=== PATIENT | male | born 1955 | race Caucasian/White ===

== ENCOUNTER 2021-12-10 17:31 | Observation (INO) | payer OTHER ==
[2021-12-10] MEDS ORDERED: Ondansetron PF 4 MG/2 ML Vial IVP PRN (18:52)
[2021-12-10] MEDS ORDERED: Ondansetron ODT 4 MG TAB PO PRN (18:52)
[2021-12-10 19:31] LABS: Hemoglobin A1c 5.2 % (4.0-6.0)
[2021-12-10 20:25] VITALS: BMI 32.3
[2021-12-10] MEDS: Acetaminophen 325 MG TAB PO PRN (20:32)
[2021-12-10] MEDS ORDERED: Atorvastatin Calcium 40 MG TAB PO SCH (21:00)
[2021-12-11 05:27] LABS: #Eosinphils 0.3 thou/uL (0.0-0.7); #Lymphocytes 2.6 thou/uL (1.20-3.40); #Monocytes 0.5 thou/uL (0.11-0.59); #Neutrophils 3.1 thou/uL (1.40-6.50); %Basophils 0.4 % (0.0-1.0); %Eosinophils 4.2 % (0.0-10.0); %Lymphocytes 39.8 % (21.0-51.0); %Monocytes 8.2 % (0.0-10.0); %Neutrophils 47.4 % (42.0-75.0); Mean Corpuscular HGB CONC 33.4 g/dL (32.0-36.0); Mean Corpuscular Hemoglobin 31.3 pg (27.0-31.0); Mean Corpuscular Volume 93.5 fL (78.0-98.0); Mean Platelet Volume 6.1 fL (7.4-10.4); Platelet Count 285 thou/uL (130-400); RBC Distribution Width 12.4 % (11.5-14.5); Red Blood Cell (RBC) Count 4.17 mill/uL (4.70-6.10); White Blood Cell (WBC) Count 6.4 thou/uL (4.8-10.8)
[2021-12-11 06:11] LABS: Anion Gap 11 mmol/L (10-20); BUN (Urea Nitrogen) 12 mg/dL (8.4-25.7); Calc. Creatinine Clearance 64 mL/min (70-130); Calcium 8.8 mg/dL (7.8-10.44); Carbon Dioxide 24 mmol/L (23-31); Cardiac Risk 5.4 (Less than 4.5); Chloride 109 mmol/L (98-107); Cholesterol 173 mg/dl (< 200 Desired); Estimated GFR 52; Glucose 94 mg/dL (80-115); HDL Cholesterol 32 mg/dL (>60 Neg Risk); LDL Cholesterol, Calculated 117 mg/dL; Potassium 4.2 mmol/L (3.5-5.1); Sodium 140 mmol/L (136-145); Triglycerides 122 mg/dL (Less than 150)
[2021-12-11 08:06] VITALS: TEMP 97.2
[2021-12-11] MEDS ORDERED: Enoxaparin Sodium 40 MG/0.4 ML SYRINGE SC SCH (09:00)
[2021-12-11] MEDS ORDERED: Aspirin 81 mg Enteric Coated Tablet PO SCH (09:00)
[2021-12-11] MEDS: Acetaminophen 325 MG TAB PO PRN (16:00)
[2021-12-11 16:39] VITALS: BP 146/72
[2021-12-11] MEDS ORDERED: Rosuvastatin 20 MG TAB PO SCH (21:00)
[2021-12-12] MEDS ORDERED: Aspirin 325 MG TAB PO SCH (09:00)
== END 2021-12-11 18:10 | disposition home or self-care (01) ==
LOC: T4-B 17:31 → NEURO 17:36
PROVIDERS: ADMIT Internal Medicine; ATTEND Internal Medicine
DX: G45.9 Transient cerebral ischemic attack, unspecified (principal); I12.9 Hypertensive chronic kidney disease with stage 1 through stage 4 chronic kidney disease, or unspecified chronic kidney disease; N18.30 Chronic kidney disease, stage 3 unspecified; K21.9 Gastro-esophageal reflux disease without esophagitis; N40.0 Benign prostatic hyperplasia without lower urinary tract symptoms; I08.8 Other rheumatic multiple valve diseases; Z86.73 Personal history of transient ischemic attack (TIA), and cerebral infarction without residual deficits; Z79.899 Other long term (current) drug therapy; Z88.1 Allergy status to other antibiotic agents; Z20.822 Contact with and (suspected) exposure to COVID-19
CPT/HCPCS: 36415; 70551; 80048; 80061; 83036; 84443; 85025; 93306; 96372; 96374; G0378; J1650; J2405; U0003; U0005